=== PATIENT | female | born 1950 | race Caucasian/White ===

== ENCOUNTER 2018-08-29 01:04 | Outpatient (CLI) | payer BC, MEDICARE, SELFPAY ==
[2018-08-29 10:27] LABS: HCT 43.2 % (36.0-46.0); HGB 14.2 g/dL (12.0-15.5); Mean Corp. HGB Concentration 32.9 g/dL (32.0-36.0); Mean Corpuscular Hemoglobin 30.3 pg (27.0-33.0); Mean Corpuscular Volume 92.3 fL (80-95); Mean Platelet Volume 11.1 fL (8.0-11.0); Platelet Count 340 x1000/uL (130-400); RBC 4.68 m/cumm (4.00-5.20); RBC Distribution Width 13.8 % (11.7-14.6); White Blood Cell Count 6.74 k/cumm (4.4-10.8)
[2018-08-29 10:40] LABS: Cholesterol 223 mg/dL (50-200); HDL Cholesterol 92 mg/dL (40-60); LDL CHOLESTEROL 108 mg/dL (<100); Triglyceride 52 mg/dL (30-150)
[2018-08-29 10:47] LABS: ALT 23 U/L (12-78); AST 14 U/L (15-37); Albumin 3.7 g/dL (3.4-5.0); Alkaline Phosphatase 88 U/L (46-116); BUN 16 mg/dL (7-18); CREATININE 0.76 mg/dL (0.55-1.02); Calcium 9.3 mg/dL (8.5-10.1); Chloride 103 mmol/L (98-107); Glucose 97 mg/dL (70-100); Magnesium 2.3 mg/dL (1.8-2.4); Potassium 4.5 mmol/L (3.5-5.1); Sodium 140 mmol/L (136-145); TSH (W/Ref FT4) 1.41 uIU/mL (0.358-3.74); Total Protein 6.7 g/dL (6.4-8.2)
== END 2018-08-29 01:24 ==
PROVIDERS: Nurse Practitioner Gerontology; PCP Family Medicine; Visit Provider Family Medicine
DX: Z00.00 Encounter for general adult medical examination without abnormal findings (principal); I10 Essential (primary) hypertension; R00.2 Palpitations
CPT/HCPCS: 36415; 80053; 80061; 83721; 85027; 83735; 84443

== ENCOUNTER 2021-06-09 12:56 | Outpatient (CLI) | payer BC, SELFPAY ==
--- NOTE | 2021-06-09 06:30 | DI.RAD_ITS ---
Exam(s) XR KNEE RT 3V AP,LAT,ROMARIO EXAM: XR KNEE RT 3V AP,LAT,ROMARIO CLINICAL HISTORY: knee pain,m25.561 TECHNIQUE: COMPARISON: No exams were available for comparison FINDINGS: Three views were obtained. The cartilaginous joint spaces appear fairly well maintained on these vie ws. There are mild marginal osteophytes of all 3 joints of the knee. There is a superior patellar e nthesophyte. There is no gross joint effusion seen on the lateral view. IMPRESSION: Mild degenerative changes as described above. RADIATION DOSE DELIVERED: Total DLP
== END 2021-06-09 13:16 ==
PROVIDERS: PCP Family Medicine; Visit Provider Nurse Practitioner
DX: M25.561 Pain in right knee (principal); M17.11 Unilateral primary osteoarthritis, right knee
CPT/HCPCS: 73562

== ENCOUNTER 2021-06-11 01:58 | Outpatient (CLI) | payer BC, SELFPAY ==
[2021-06-11 10:34] LABS: HCT 44.2 % (36.0-46.0); MCH 30.4 pg (27.0-33.0); MCHC 31.7 % (32.0-36.0); MCV 96.1 fL (80-95); MPV 10.6 fL (8.0-11.0); Platelet Count 322 10^3/uL (130-400); RDW 13.7 % (11.7-14.6); WBC 5.51 10^3/uL (4.4-10.8)
== END 2021-06-11 01:59 | disposition home or self-care (01) ==
LOC: LBO 01:58
PROVIDERS: PCP Family Medicine; Visit Provider Nurse Practitioner
DX: I10 Essential (primary) hypertension (principal); M25.561 Pain in right knee; R10.9 Unspecified abdominal pain
CPT/HCPCS: 36415; 85027

== ENCOUNTER 2021-08-23 04:22 | Outpatient (CLI) | payer BC, SELFPAY ==
[2021-08-23 12:48] LABS: Anion Gap 8.5 mmol/L (3-11); BUN 15 mg/dL (7-18); CO2 28.5 mmol/L (21.0-32.0); CREATININE 0.7 mg/dL (0.55-1.02); Chloride 103 mmol/L (98-107); Glucose 102 mg/dL (74-106); Potassium 3.8 mmol/L (3.5-5.1); Sodium 140 mmol/L (136-145)
== END 2021-08-23 04:23 | disposition home or self-care (01) ==
LOC: LBO 04:22
PROVIDERS: PCP Family Medicine; Visit Provider Family Medicine
DX: Z00.00 Encounter for general adult medical examination without abnormal findings (principal); I10 Essential (primary) hypertension
CPT/HCPCS: 36415; 80048

== ENCOUNTER 2022-12-29 02:55 | Outpatient (CLI) | payer BC, SELFPAY ==
[2022-12-29 17:04] LABS: Anion Gap 8.8 mmol/L (3-11); BUN 11 mg/dL (7-18); CO2 28.2 mmol/L (21.0-32.0); CREATININE 0.8 mg/dL (0.55-1.02); Calcium 9.5 mg/dL (8.5-10.1); Chloride 106 mmol/L (98-107); Estimated GFR 78.72 (mL/min/1.73m2); Glucose 89 mg/dL (74-106); Potassium 4.6 mmol/L (3.5-5.1); Sodium 143 mmol/L (136-145)
== END 2022-12-29 02:56 | disposition home or self-care (01) ==
LOC: LBO 02:55
PROVIDERS: PCP Family Medicine; Visit Provider Family Medicine
DX: I10 Essential (primary) hypertension (principal)
CPT/HCPCS: 36415; 80048

== ENCOUNTER 2024-04-01 13:25 | Outpatient (CLI) | payer BC, SELFPAY ==
[2024-04-01 09:37] LABS: Anion Gap 7.7 mmol/L (3-11); BUN 13 mg/dL (7-18); CO2 28.3 mmol/L (21.0-32.0); CREATININE 0.9 mg/dL (0.55-1.02); Calcium 8.9 mg/dL (8.5-10.1); Calculated LDL 102 mg/dL (<100); Chloride 108 mmol/L (98-107); Cholesterol 216 mg/dL (<200); Estimated GFR 67.92 (mL/min/1.73m2); Glucose 114 mg/dL (74-106); HDL Cholesterol 107 mg/dL (40-60); Potassium 4.4 mmol/L (3.5-5.1); Sodium 144 mmol/L (136-145); Triglyceride 37 mg/dL (<150)
== END 2024-04-01 13:26 | disposition home or self-care (01) ==
LOC: LBO 13:26
PROVIDERS: PCP Family Medicine; Visit Provider Family Medicine
DX: Z13.6 Encounter for screening for cardiovascular disorders (principal); I10 Essential (primary) hypertension
CPT/HCPCS: 36415; 80048; 80061